=== PATIENT | female | born 1945 | race Caucasian/White ===

== ENCOUNTER → 2017-08-26 | Outpatient (CLI) | payer BC, MEDICARE ==
--- NOTE | 2017-08-26 11:33 | RAD ---
DATE: 08/26/2017 EXAM: DIGITAL SCREEN BILAT W/CAD HISTORY: Routine screening COMPARISON: 08/13/2016 This study was interpreted with the benefit of Computerized Aided Detection (CAD). FINDINGS: Breast Density: SCATTERED The breast parenchyma shows scattered fibroglandular densities. Breast parenchyma level B. Small asymmetry identified in the right upper breast best seen on the cc view. Bilateral breast parenchyma demonstrates nodular densities similar to prior exam. IMPRESSION: Small asymmetry right outer breast best seen on the CC view.. Recommend spot compression view of the right breast in cc view. A ML views recommended. BI-RADS CATEGORY: 0 INCOMPLETE: NEEDS ADDITIONAL IMAGING EVALUATION AND/OR PRIOR MAMMOGRAMS FOR COMPARISON. RECOMMENDED FOLLOW-UP: ADD ADDITIONAL IMAGING PQRS compliance statement: Patient information was entered into a reminder system with a target due date immediate recall for the next mammogram. Mammography is a sensitive method for finding small breast cancers, but it does not detect them all and is not a substitute for careful clinical examination. A negative mammogram does not negate a clinically suspicious finding and should not result in delay in biopsying a clinically suspicious abnormality. "Our facility is accredited by the [employer] Mammography [employer]."
== END | disposition home or self-care (01) ==
LOC: MAMMO 10:36
PROVIDERS: ATTEND Obstetrics & Gynecology
DX: Z12.31 Encounter for screening mammogram for malignant neoplasm of breast (principal)
CPT/HCPCS: G0202; 77067

== ENCOUNTER → 2017-09-07 | Outpatient (CLI) | payer BC, MEDICARE ==
--- NOTE | 2017-09-07 15:54 | RAD ---
DATE: 09/07/17 EXAM: DIGITAL DIAGNOSTIC RT, BREAST RIGHT HISTORY: Asymmetric density seen in the right breast on screening mammogram COMPARISON: 08/26/17 This study was interpreted with the benefit of Computerized Aided Detection (CAD). Findings: Mammogram: 90 degree mediolateral, CC and MLO spot compression views of the right breast are obtained the area of asymmetric density appears to spread out and somewhat blend in with the surrounding fibroglandular tissues. Ultrasound to follow Right breast ultrasound : Sonographic evaluation of the right upper outer breast is performed and images are obtained. Normal fibroglandular densities are seen. No solid or cystic mass lesions are identified. IMPRESSION: Area of asymmetric density in the right upper outer breast appears to blend in with the surrounding fibroglandular tissues. A six-month follow-up right breast mammogram may be obtained to ensure interval stability. If needed at that time ultrasound may also be obtained. BI-RADS CATEGORY: 3 PROBABLE BENIGN-SHORT TERM F/U RECOMMENDED FOLLOW-UP: 6M 6 MONTH FOLLOW-UP PQRS compliance statement: Patient information was entered into a reminder system with a target due date for the next mammogram. Mammography is a sensitive method for finding small breast cancers, but it does not detect them all and is not a substitute for careful clinical examination. A negative mammogram does not negate a clinically suspicious finding and should not result in delay in biopsying a clinically suspicious abnormality. "Our facility is accredited by the [employer] Mammography [employer]."
== END | disposition home or self-care (01) ==
LOC: MAMMO 13:54
PROVIDERS: ATTEND Obstetrics & Gynecology
DX: N64.89 Other specified disorders of breast (principal)
CPT/HCPCS: 76641; G0206; 77065

== ENCOUNTER → 2018-03-03 | Outpatient (CLI) | payer BC, MEDICARE ==
--- NOTE | 2018-03-03 14:48 | RAD ---
DATE: 03/03/2018 EXAM: DIGITAL DIAGNOSTIC RT HISTORY: 6 month follow-up of asymmetry COMPARISON: 09/27/2017, 08/26/2017 This study was interpreted with the benefit of Computerized Aided Detection (CAD). The breast parenchyma shows scattered fibroglandular densities. Breast parenchyma level B. FINDINGS: 2-D and 3-D tomosynthesis imaging was performed in CC and MLO projections. No new or enlarging breast densities are seen. Several benign type calcifications are present. No suspicious microcalcifications have developed. IMPRESSION: Stable mammograms without evidence of malignancy. Bilateral mammography in 6 months is suggested. BI-RADS CATEGORY: 3 PROBABLY BENIGN FINDING(S)-SHORT INTERVAL FOLLOW-UP SUGGESTED RECOMMENDED FOLLOW-UP: 6M 6 MONTH FOLLOW-UP PQRS compliance statement: Patient information was entered into a reminder system with a target due date for the next mammogram. Mammography is a sensitive method for finding small breast cancers, but it does not detect them all and is not a substitute for careful clinical examination. A negative mammogram does not negate a clinically suspicious finding and should not result in delay in biopsying a clinically suspicious abnormality. "Our facility is accredited by the [employer] Mammography [employer]."
== END | disposition home or self-care (01) ==
LOC: MAMMO 13:55
PROVIDERS: ATTEND Obstetrics & Gynecology
DX: R92.8 Other abnormal and inconclusive findings on diagnostic imaging of breast (principal)
CPT/HCPCS: 77065; G0279; 77061

== ENCOUNTER → 2018-11-02 | Outpatient (CLI) | payer BC ==
--- NOTE | 2018-11-02 16:24 | RAD ---
DATE: 11/02/2018 EXAM: MAMMO MARCIA MARIELLA NGOAT HISTORY: 6 month follow-up COMPARISON: 09/07/2017, 08/26/2017 This study was interpreted with the benefit of Computerized Aided Detection (CAD). Breast Density: SCATTERED The breast parenchyma shows scattered fibroglandular densities. Breast parenchyma level B. FINDINGS: 2-D and 3-D tomosynthesis imaging was performed in CC and MLO projections. The fibroglandular tissues are heterogeneous. There is concern described laterally in the right breast on the study of 08/26/2017 is unchanged. No mass or enlarging density is seen in that region. There is a small nodular opacity seen in the central left breast anteriorly which appears more prominent than on the previous study. The CC tomogram suggests that this density represents a combination of 2 superimposed fibroglandular opacities seen on CC tomosynthesis images 22 and 38. These findings are not clearly visualized in the oblique projection. No other new or enlarging breast densities are seen. Benign type calcifications are evident. IMPRESSION: 1. Possible small left breast nodule or summation shadow as described above. Sonographic evaluation is suggested. 2. Stable right mammograms without evidence of malignancy. BI-RADS CATEGORY: 0 INCOMPLETE: NEEDS ADDITIONAL IMAGING EVALUATION AND/OR PRIOR MAMMOGRAMS FOR COMPARISON. RECOMMENDED FOLLOW-UP: ADD ADDITIONAL IMAGING PQRS compliance statement: Patient information was entered into a reminder system with a target due date for the next mammogram. Mammography is a sensitive method for finding small breast cancers, but it does not detect them all and is not a substitute for careful clinical examination. A negative mammogram does not negate a clinically suspicious finding and should not result in delay in biopsying a clinically suspicious abnormality. "Our facility is accredited by the [employer] Mammography [employer]."
== END | disposition home or self-care (01) ==
LOC: MAMMO 09:12
PROVIDERS: ATTEND Obstetrics & Gynecology
DX: R92.8 Other abnormal and inconclusive findings on diagnostic imaging of breast (principal)
CPT/HCPCS: 77066; G0279; 77062

== ENCOUNTER → 2018-11-09 | Outpatient (CLI) | payer BC ==
--- NOTE | 2018-11-09 10:44 | RAD ---
DATE: November 09, 2018 EXAM: DIGITAL DIAGNOSTIC LT, BREAST LEFT SONOGRAPHY HISTORY: Further evaluation of nodular density seen in the CC projection only on a 3-D screening mammogram dated November 02, 2018. Nodule is seen medially. COMPARISON: 2015 and 2016 and November 02, 2018 This study was interpreted with the benefit of Computerized Aided Detection (CAD). FINDINGS: Focal digital compression view of the retroareolar region of the left breast in the CC projection and digital rolled CC views and digital 90 degree mediolateral view of the left breast were performed. The previously seen nodular density is not apparent in 3 out of 4 views. It is still seen in the focal compression view but most likely benign given that is not seen on other 3 views. Left breast sonography was performed today as well. LEFT BREAST SONOGRAPHY: High-resolution sonography of the left breast from the 7:00 to 12:00 position was performed. No focal sonographic abnormality is apparent. IMPRESSION: Probable benign finding of the left breast. Recommend 6 month follow-up 3-D mammogram of the left breast. BI-RADS CATEGORY: 3 PROBABLE BENIGN-SHORT TERM F/U RECOMMENDED FOLLOW-UP: 6M 6 MONTH FOLLOW-UP PQRS compliance statement: Patient information was entered into a reminder system with a target due date May 03, 2019 for the next mammogram. Mammography is a sensitive method for finding small breast cancers, but it does not detect them all and is not a substitute for careful clinical examination. A negative mammogram does not negate a clinically suspicious finding and should not result in delay in biopsying a clinically suspicious abnormality. "Our facility is accredited by the [employer] Mammography [employer]."
== END | disposition home or self-care (01) ==
LOC: US 08:56
PROVIDERS: ATTEND Obstetrics & Gynecology
DX: R92.8 Other abnormal and inconclusive findings on diagnostic imaging of breast (principal)
CPT/HCPCS: 76641; 77065

== ENCOUNTER → 2019-04-22 | Outpatient (CLI) | payer BC, MEDICARE ==
--- NOTE | 2019-04-22 09:39 | RAD ---
DATE: 04/22/2019 EXAM: MAMMO MARCIA DIAG LT HISTORY: 6 month follow-up breast nodule COMPARISON: 11/02/2018, 11/09/2018 This study was interpreted with the benefit of Computerized Aided Detection (CAD). Breast Density: SCATTERED The breast parenchyma shows scattered fibroglandular densities. Breast parenchyma level B. FINDINGS: 2-D and 3-D tomosynthesis imaging was performed in CC and MLO projections. The fibroglandular tissues are heterogeneous and somewhat nodular in character. Small focal opacities seen just medial to the midline of the left breast on CC tomosynthesis images 26 and 43 appear unchanged. No new or enlarging left breast densities are seen. Scattered benign type calcifications are present. No suspicious microcalcifications have developed. IMPRESSION: Stable left mammograms without evidence of malignancy. Follow-up bilateral mammography in 6 months is suggested. BI-RADS CATEGORY: 3 PROBABLY BENIGN FINDING(S)-SHORT INTERVAL FOLLOW-UP SUGGESTED RECOMMENDED FOLLOW-UP: 6M 6 MONTH FOLLOW-UP PQRS compliance statement: Patient information was entered into a reminder system with a target due date for the next mammogram. Mammography is a sensitive method for finding small breast cancers, but it does not detect them all and is not a substitute for careful clinical examination. A negative mammogram does not negate a clinically suspicious finding and should not result in delay in biopsying a clinically suspicious abnormality. "Our facility is accredited by the [employer] Mammography [employer]."
== END | disposition home or self-care (01) ==
LOC: MAMMO 08:53
PROVIDERS: ATTEND Obstetrics & Gynecology
DX: N64.89 Other specified disorders of breast (principal)
CPT/HCPCS: 77065; G0279; 77061

== ENCOUNTER → 2019-11-11 | Outpatient (CLI) | payer BC ==
--- NOTE | 2019-11-11 16:08 | RAD ---
DATE: 11/11/2019 EXAM: MAMMO MARCIA MARIELLA NGOAT HISTORY: Abnormal prior left mammogram COMPARISON: 08/13/2016, 08/26/2017, 11/02/2018 bilateral mammographic exams and left diagnostic mammogram dated 04/22/2019 This study was interpreted with the benefit of Computerized Aided Detection (CAD). Breast Density: HETERO The breast parenchyma is heterogenously dense, which could reduce sensitivity of mammography. Breast parenchyma level C. FINDINGS: No suspicious calcifications, masses, or distortion in the interval. Parenchymal distribution is stable. IMPRESSION: Stable BI-RADS CATEGORY: 1 NEGATIVE RECOMMENDED FOLLOW-UP: 12M 12 MONTH FOLLOW-UP PQRS compliance statement: Patient information was entered into a reminder system with a target due date for the next mammogram. Mammography is a sensitive method for finding small breast cancers, but it does not detect them all and is not a substitute for careful clinical examination. A negative mammogram does not negate a clinically suspicious finding and should not result in delay in biopsying a clinically suspicious abnormality. "Our facility is accredited by the [employer] Mammography [employer]."
== END | disposition home or self-care (01) ==
LOC: MAMMO 15:01
PROVIDERS: ATTEND Obstetrics & Gynecology
DX: Z12.31 Encounter for screening mammogram for malignant neoplasm of breast (principal)
CPT/HCPCS: 77066; G0279; 77062

== ENCOUNTER → 2020-11-16 | Outpatient (CLI) | payer BC, MEDICARE ==
--- NOTE | 2020-11-19 13:12 | RAD ---
DATE: 11/16/2020 10:00 AM EXAM: MAMMO MARCIA SCREENING BILATERAL HISTORY: Screening COMPARISON: 11/11/2019 Bilateral CC and MLO views of the breasts were performed. Bilateral breast tomosynthesis was performed in CC and MLO projections. This study was interpreted with the benefit of Computerized Aided Detection (CAD). FINDINGS: Breast Density: SCATTERED The breast parenchyma shows scattered fibroglandular densities. Breast parenchyma level B No suspicious masses, microcalcifications or architectural distortion is present to suggest malignancy in either breast. The visualized axillae are unremarkable. IMPRESSION: No mammographic evidence of malignancy. BI-RADS CATEGORY: 1 NEGATIVE RECOMMENDED FOLLOW-UP: 12M 12 MONTH FOLLOW-UP Annual screening mammography is recommended, unless clinically indicated sooner based on symptoms or change in physical exam. PQRS compliance statement: Patient information was entered into a reminder system with a target due date for the next mammogram. Mammography is a sensitive method for finding small breast cancers, but it does not detect them all and is not a substitute for careful clinical examination. A negative mammogram does not negate a clinically suspicious finding and should not result in delay in biopsying a clinically suspicious abnormality. "Our facility is accredited by the [employer] Mammography Program."
== END ==
LOC: MAMMO 09:50
PROVIDERS: ATTEND Obstetrics & Gynecology
DX: Z12.31 Encounter for screening mammogram for malignant neoplasm of breast (principal); N64.89 Other specified disorders of breast
CPT/HCPCS: 77063; 77067

== ENCOUNTER → 2021-11-26 | Outpatient (CLI) | payer BC, MEDICARE ==
--- NOTE | 2021-11-26 15:17 | RAD ---
BILATERAL DIGITAL SCREENING 2-D AND 3-D MAMMOGRAM INDICATION: Routine screening. COMPARISON: Prior studies including one of 11/16/2020. Interpretation was made using CAD. FINDINGS: Breast Density: B RIGHT BREAST: No suspicious masses, calcifications or areas of architectural distortion are seen. LEFT BREAST: No suspicious masses, calcifications or areas of architectural distortion are seen. IMPRESSION: 1. No imaging evidence of malignancy. ASSESSMENT: BI-RADS 1. Negative. RECOMMENDATION: Routine annual screening mammogram. The facility will notify the patient of the results via mail. Patient information will be entered int o the mammography reminder system with a target recall date for the next mammogram. A reminder letter will be generated by the facility. Electronically signed by: Elliot Garces Jr., MD (11/26/2021 3:15 PM) [id number]
== END ==
LOC: MAMMO 11:23
PROVIDERS: ATTEND Family Medicine
DX: Z12.31 Encounter for screening mammogram for malignant neoplasm of breast (principal)
CPT/HCPCS: 77063; 77067